=== PATIENT | female | born 1935 | race Caucasian/White ===

== ENCOUNTER → 2017-05-08 | Outpatient (CLI) | payer MEDICARE ==
--- NOTE | 2017-05-09 09:38 | RAD ---
EXAM DESCRIPTION: Cervical Spine,3 Views CLINICAL HISTORY: CERVICAL SPONDYLOSIS COMPARISON: None Available. TECHNIQUE: AP/lateral/ open-mouth odontoid FINDINGS: There is good alignment. There is no fracture or bone lesion. There is no soft tissue abnormality. Marked disc space narrowing at C5-6 with lesser changes C4-5 and C6-7. Significant facet arthropathy C3-4. Uncinate arthropathy throughout the mid and lower cervical spine. Atherosclerotic vascular calcification both carotids. IMPRESSION: 1. Cervical spondylosis, no acute process. Electronically signed by: Kuldeep Lopez MD 05/09/2017 9:37 AM CDT
--- NOTE | 2017-05-09 09:42 | RAD ---
EXAM DESCRIPTION: Lumbar Spine 3 Views CLINICAL HISTORY: NEURITIS COMPARISON: None Available. TECHNIQUE: AP/lateral/coned-down lateral FINDINGS: There is good alignment of the lumbar spine. There is no fracture or bone lesion. 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 Endplate sclerosis quite prominent at L2-3. Atherosclerotic vascular calcification of the abdominal aorta with small abdominal aortic aneurysm measuring 2.9 cm. IMPRESSION: 1. 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 2.9 cm abdominal aortic aneurysm. Follow-up recommended as per best practice recommendations cited below: AAA Size: Follow-up Recommendation (1): 2.6 - 2.9 cm Every 5 years (2) 3.0 - 3.4 cm Every 3 years 3.5 - 3.9 cm Every 12 months 4.0 - 4.4 cm Every 12 months, vasc consult rec 4.5 - 5.4 cm Every 6 months, vasc consult rec >=5.5 cm Referral to vascular surgeon recommended (1)Based upon the Society for Vascular Surgery Guidelines: J Vasc Surg. 2009 Apr;50(4 Suppl):S2-49 (2)For aortas of max suraj of 2.6-2.9 cm that meet criteria for AAA (>= 1.5 x proximal normal segment) Electronically signed by: Kuldeep Lopez MD 05/09/2017 9:40 AM CDT
== END | disposition home or self-care (01) ==
LOC: RAD 13:33
DX: M47.812 Spondylosis without myelopathy or radiculopathy, cervical region (principal); M51.36 Other intervertebral disc degeneration, lumbar region; M54.17 Radiculopathy, lumbosacral region

== ENCOUNTER → 2018-11-19 | Outpatient (CLI) | payer MEDICARE ==
--- NOTE | 2018-11-20 10:00 | US ---
EXAM DESCRIPTION: Breast,Right: Ultrasound CLINICAL HISTORY: 83 yearsFemaleABNORMAL MAMMO COMPARISON: Bilateral screening digital breast tomosynthesis 10/24/2018. TECHNIQUE: Transcutaneous scanning of the right breast utilizing lua-scale modes. Scanning performed by the tap builder and Dr. Rome. FINDINGS: Scanning of the upper outer quadrant of the right breast from the nipple to the chest wall. Predominantly fatty tissues. No dominant solid mass or distinct cyst. No parenchymal edema or large calcifications. No overlying skin changes. Normal vascularity. IMPRESSION: Benign exam. BIRAD CATEGORY: 2 BENIGN FINDINGS. RECOMMENDATIONS: FOLLOW UP: Return to routine digital bilateral mammographic screening, one year interval from October 2018 Written communication explaining the IMPRESSION and follow-up, will be mailed to the patient and referring health care provider. The FINDINGS and the FOLLOW-UP plan were reviewed in person with the patient after the examination. According to the [employer], yearly mammograms are recommended starting at age 40 and continuing as long as a woman is in good health. Any breast change noted on a breast self-exam should be reported promptly to the patient's healthcare provider. Breast MRI is recommended for women with an approximately 20-25% or greater lifetime risk of breast cancer, including women with a strong family history of breast or ovarian cancer and women who have been treated for Hodgkin's disease. A negative mammographic report should not delay tissue diagnosis in patients with significant clinical history or physical findings. Extremely dense breast tissue limits the sensitivity of digital mammography. Electronically signed by: Abad Rome MD 11/20/2018 9:57 AM CDT
== END ==
LOC: MAMMO 13:00
PROVIDERS: ATTEND General Practice
DX: R92.2 Inconclusive mammogram (principal)